=== PATIENT | male | born 1960 | race Caucasian/White ===

== ENCOUNTER 2017-05-14 18:00 | Emergency (ER) | payer SELFPAY ==
[~2017-05-14] VITALS: Ht 157.5 cm; Wt 54.4 kg
--- NOTE | 2017-05-14 18:05 | NUR ---
56 YO MALE BB RA FROM HOME. 911 WAS CALLED FOR ETOH INTOXICATION; FOUND LYING OUTSIDE HIS APARTMENT. PATIENT IS ASSISTED TO ER BED, SKIN WARM AND DRY, RESP EVEN AND UNLABORED. PATIENT PLACED ON SLEEPER CUTTER, WILL CONTINUE TO MONITOR
[2017-05-14 18:28] LABS: BASOPHILS # (AUTO) 0.1 /CMM (0.0-0.2); BASOPHILS % (AUTO) 0.8 % (0.0-2.0); EOSINOPHILS % (AUTO) 0.5 % (0.0-6.0); HEMATOCRIT 42 % (39-51); HEMOGLOBIN 14.2 g/dL (13.5-17.5); LYMPHOCYTES # (AUTO) 1.1 /CMM (0.8-4.8); LYMPHOCYTES % (AUTO) 11.5 % (20.0-44.0); MEAN CORPUSCULAR HEMOGLOBIN 33 PG (26.0-33.0); MEAN CORPUSCULAR HGB CONC 34 g/dl (31.0-36.0); MEAN CORPUSCULAR VOLUME 98 fL (80-96); MONOCYTES # (AUTO) 0.9 /CMM (0.1-1.30); MONOCYTES % (AUTO) 9.7 % (2.0-12.0); NEUTROPHILS # (AUTO) 7.5 /CMM (1.8-8.9); NEUTROPHILS % (AUTO) 77.5 % (43.0-81.0); PLATELET COUNT (AUTO) 367 /CMM (150-450); RDW COEFFICIENT OF VARIATION 11.6 (11.5-15.0); RED BLOOD CELL COUNT(AUTO) 4.26 MIL/uL (4.5-6.0); WHITE BLOOD COUNT (AUTO) 9.6 K/uL (4.3-11.0)
[2017-05-14] MEDS ORDERED: IV NS 0.9% 1,000 ML IV ONE (18:30)
[2017-05-14] MEDS ORDERED: Thiamine 100 MG in IV D5W 50 ML IV SCH (18:30)
[2017-05-14 18:45] LABS: CALCIUM, SERUM 8.9 mg/dL (8.5-10.1); CREATININE 1.1 mg/dL (0.6-1.3)
[2017-05-14 18:52] LABS: ALBUMIN 3.8 g/dL (3.4-5.0); BILIRUBIN,DIRECT 0.1 mg/dL (0.0-0.2); BILIRUBIN,TOTAL 0.2 mg/dL (0.2-1.0); TOTAL PROTEIN, SERUM 7.8 g/dL (6.4-8.2)
[2017-05-14 18:53] LABS: SALICYLATE 2.6 mg/dL (2.8-20.0)
[2017-05-14] MEDS ORDERED: Thiamine 100 MG/ML VIAL ONE (18:55)
--- NOTE | 2017-05-14 19:07 | NUR ---
20G RIGHT AC IV STARTED, MEDICATED PTY ORDERED
--- NOTE | 2017-05-14 20:58 | NUR ---
IV removed. Catheter intact and site benign. Pressure and 4x4 applied to site. No bleeding noted.Patient discharged to home in stable condition. Written and verbal after care instructions given. Patient verbalizes understanding of instruction.
[2017-05-14 21:02] VITALS: BP 146/82
== END 2017-05-14 21:02 | disposition home or self-care (01) ==
LOC: ER 18:02
DX: R41.82 Altered mental status, unspecified (principal); F10.129 Alcohol abuse with intoxication, unspecified
CPT/HCPCS: 36415; 80048; 80076; 80329; 83735; 85025; 96365; 99284; A4606; G0480 ×2; J3411 ×2; J7060; Z7610